=== PATIENT | male | born 1970 | race Caucasian/White ===

== ENCOUNTER 2019-01-15 18:17 | Emergency (ER) | payer SELFPAY ==
[~2019-01-15] VITALS: Ht 172.7 cm; Wt 68.0 kg
--- NOTE | 2019-01-15 18:17 | NUR ---
PATIENT BIBA TO BED 10
[2019-01-15 18:36] VITALS: BP 116/79
--- NOTE | 2019-01-15 18:37 | NUR ---
BIBA. PATIENT PRESENTS WITH ALOC. PT WAS FOUND LAYING ON THE GROUND BY THE BUS STOP. AAOX2 TO NAME AND YEAR. ABLE TO FOLLOW COMMANDS. PERRLA, CLEAR SPEECH. EQUAL BILATERAL UPPER AND LOWER STRENGTH. BS 89. 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 HOB UP, ON LOW BED POSITION, LOCKED, BED SIDE RAILS UP X 2. MD MADE AWARE OF PT STATUS.
--- NOTE | 2019-01-15 18:37 | NUR ---
PT REFUSED TO PUT GOWN ON.
--- NOTE | 2019-01-15 19:00 | NUR ---
PT BELONGING, POCKET KNIFE AND SMOKING PIPE, SENT TO SECURITY PER CHARGE NURSE
--- NOTE | 2019-01-15 19:15 | NUR ---
Luc dumont in [facility] - 01/15/19 at 1916 by [facility] RECEIVED REPORT FROM JOSE DONVOAN.
--- NOTE | 2019-01-15 19:15 | NUR ---
RECEIVED REPORT FROM JOSE COE.
--- NOTE | 2019-01-15 19:16 | NUR ---
Pt report given to JOSE DYER AND JOSE MENENDEZ. Transfer of care at this time.
--- NOTE | 2019-01-15 19:40 | NUR ---
ERMD EVALUATING AT BEDSIDE.
--- NOTE | 2019-01-15 19:40 | NUR ---
Dr. Armstrong evaluating patient at bedside.
--- NOTE | 2019-01-15 19:52 | NUR ---
PT AMBULATED TO BATHROOM WITHOUT ASSISTANCE
[2019-01-15 20:19] VITALS: BP 106/80
--- NOTE | 2019-01-15 20:19 | NUR ---
Patient given written and verbal discharge instructions and verbalizes understanding. Given copies of tests performed during visit. Patient is awake, alert and oriented. Ambulatory with steady gait. Refuses offer of long-term placement. Given list of available shelters in surrounding areas. Provided meal, hygiene kit, and pt dressed appropriately and bus pass provided.
== END 2019-01-15 20:19 | disposition home or self-care (01) ==
LOC: MED 18:17
DX: F10.129 Alcohol abuse with intoxication, unspecified (principal); F17.200 Nicotine dependence, unspecified, uncomplicated
CPT/HCPCS: 99281